=== PATIENT | female | born 1950 | race Caucasian/White ===

== ENCOUNTER 2017-03-30 17:37 | Emergency (ER) | payer OTHER ==
[2017-03-30 17:52] VITALS: BP 148/96
== END 2017-03-30 18:30 | disposition home or self-care (01) ==
LOC: ED 17:37
DX: R21 Rash and other nonspecific skin eruption (principal); L29.9 Pruritus, unspecified; M19.90 Unspecified osteoarthritis, unspecified site; G56.00 Carpal tunnel syndrome, unspecified upper limb; M53.82 Other specified dorsopathies, cervical region; Z88.8 Allergy status to other drugs, medicaments and biological substances; Z98.890 Other specified postprocedural states